=== PATIENT | female | born 2000 | race Two or more races ===

== ENCOUNTER 2023-03-17 11:15 | Outpatient (CLI) | payer OTHER | END 2023-03-17 11:25 | disposition home or self-care (01) | LOC: PPH VACUNA 11:15 | PROVIDERS: ATTEND Emergency Medicine Pediatric Emergency Medicine | DX: Z23 Encounter for immunization (principal) ==

== ENCOUNTER 2023-05-03 23:46 | Emergency (ER) | payer OTHER ==
[~2023-05-03] VITALS: Ht 175.3 cm; Wt 73.5 kg
== END 2023-05-04 01:43 ==
LOC: ER 23:46
DX: S61.248A Puncture wound with foreign body of other finger without damage to nail, initial encounter (principal); W46.1XXA Contact with contaminated hypodermic needle, initial encounter; Y93.89 Activity, other specified; Y92.89 Other specified places as the place of occurrence of the external cause; Y99.8 Other external cause status